=== PATIENT | male | born 1970 | race Two or more races ===

== ENCOUNTER 2019-01-25 12:21 | Day surgery (SDC) | payer OTHER ==
[~2019-01-25] VITALS: Ht 177.8 cm; Wt 82.0 kg
[2019-01-25] MEDS ORDERED: LACTATED RINGERS 1,000 ML IV SCH (12:56)
[2019-01-25] MEDS ORDERED: FLUT1BLS INH (13:00)
[2019-01-25] MEDS ORDERED: LIDOCAINE-MPF 1%, 2ML INFIL ONE (13:00)
[2019-01-25 13:16] VITALS: BP 137/87
[2019-01-25] MEDS ORDERED: LABETALOL 5MG/ML, 20ML IV PRN (13:30)
[2019-01-25] MEDS ORDERED: MEPERIDINE/PF 25MG/ML,1ML IVPush PRN (13:30)
[2019-01-25] MEDS ORDERED: FENTANYL PF 100 MCG/2ML IV PRN (13:30)
[2019-01-25] MEDS ORDERED: ALBUTEROL SULFATE 2.5 MG/3 ML NPPB PRN (13:30)
[2019-01-25] MEDS ORDERED: PROCHLORPERAZINE 5 MG/ML, 2ML IV PRN (13:30)
[2019-01-25] MEDS ORDERED: hydrALAzine 20 MG/ML, 1ML IV PRN (13:30)
[2019-01-25] MEDS ORDERED: ALBUTEROL/IPRATROPIUM 2.5MG/0.5MG, 3 ML NPPB PRN (13:30)
[2019-01-25] MEDS ORDERED: PROMETHAZINE 25 MG/ML, 1ML IV PRN (13:30)
[2019-01-25] MEDS ORDERED: HYDROmorphone 2 MG/ML, 1ML IVPush PRN (13:30)
[2019-01-25] MEDS ORDERED: FENTANYL PF 100 MCG/2ML ONE ×2 (13:32→14:07)
[2019-01-25] MEDS ORDERED: FENTANYL PF 250 MCG/5ML ONE (14:18)
[2019-01-25] MEDS ORDERED: CEFAZOLIN 1,000 MG ONE (14:50)
[2019-01-25] MEDS ORDERED: GLYCOPYRROLATE 0.2MG/1ML, 5ML ONE (14:50)
[2019-01-25] MEDS ORDERED: ONDANSETRON 2MG/ML, 2ML ONE (14:50)
[2019-01-25] MEDS ORDERED: NEOSTIGMINE 1 MG/ML, 10ML ONE (14:50)
[2019-01-25] MEDS ORDERED: PROPOFOL 10 MG/ML, 20ML ONE (14:50)
[2019-01-25] MEDS ORDERED: DEXAMETHASONE 4 MG/ML, 1ML ONE (14:50)
[2019-01-25] MEDS ORDERED: SUCCINYLCHOLINE 20 MG/ML, 10ML ONE (14:50)
[2019-01-25] MEDS ORDERED: ROCURONIUM 10MG/ML,5ML ONE (14:50)
== END 2019-01-25 16:20 | disposition home or self-care (01) ==
LOC: OUT 12:21
PROVIDERS: ATTEND Internal Medicine
DX: R91.8 Other nonspecific abnormal finding of lung field (principal); I89.8 Other specified noninfective disorders of lymphatic vessels and lymph nodes; J44.9 Chronic obstructive pulmonary disease, unspecified; I10 Essential (primary) hypertension; F41.9 Anxiety disorder, unspecified; Z72.89 Other problems related to lifestyle
CPT/HCPCS: 31653; 88172; 88173; 88177; 88305; J0330; J0690; J1100; J2405; J2704; J2710; J3010; 31629; 31632